=== PATIENT | male | born 1995 | race African-American/Black ===

== ENCOUNTER 2016-11-10 23:49 | Emergency (ER) | payer SELFPAY ==
[~2016-11-10] VITALS: Ht 182.9 cm; Wt 80.8 kg
[2016-11-10 23:53] VITALS: BP 132/84; PULSE 72; RESP 16; TEMP 98.5; O2SAT 72; O2SAT 99
[2016-11-11] MEDS ORDERED: LIDOCAINE 1%/EPINEPHrine 1:100,000 SOLN 30 ML VIAL INFIL ONE (01:00)
[2016-11-11] MEDS ORDERED: LIDOCAINE 1%/EPINEPHrine 1:100,000 SOLN 20 ML VIAL INFIL ONE (01:00)
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
[2016-11-11 01:22] VITALS: BP 136/78; PULSE 72; RESP 16; O2SAT 99
== END 2016-11-11 01:22 | disposition home or self-care (01) ==
LOC: PHED 23:49 → PHEFT 11-11 01:22
DX: S01.112A Laceration without foreign body of left eyelid and periocular area, initial encounter (principal); X58.XXXA Exposure to other specified factors, initial encounter; Y93.67 Activity, basketball; Y99.9 Unspecified external cause status
CPT/HCPCS: 12011

== ENCOUNTER 2016-11-17 23:25 | Emergency (ER) | payer SELFPAY ==
[~2016-11-17] VITALS: Ht 182.9 cm; Wt 82.0 kg
[2016-11-17 23:45] VITALS: BP 137/89; PULSE 64; RESP 18; TEMP 97.8; O2SAT 100
--- NOTE | 2016-11-18 01:22 | PD ---
HPI Chief Complaint: Wound/Suture/Staple Re-Check Time Seen by Provider: 01:19 Travel History International Travel<30 days: No Contact w/Intl Traveler<30days: No Traveled to known affect area: No History of Present Illness HPI The patient is here for suture removal left eyebrow. The sutures are doing well. History Past Medical History Tetanus Vaccination: < 5 Years Influenza Vaccination: Yes Social History Alcohol Use: Yes (RARE) Tobacco Use: No Allergies-Medications (Allergen,Severity, Reaction): Coded Allergies: No Known Allergies (Verified , 11/18/16) Reported Meds & Prescriptions Reported Meds & Active Scripts Active No Active Prescriptions or Reported Medications Review of Systems Except as stated in HPI: all other systems reviewed are Neg Physical Exam Narrative Left eyebrow sutures are healing well and these will be removed. Data Data Last Documented VS Vital Signs Date Time Temp Pulse Resp B/P Pulse Ox O2 Delivery O2 Flow Rate FiO2 11/18/16 01:11 18 11/17/16 23:45 97.8 64 137/89 100 MDM Medical Decision Making Medical Screen Exam Complete: Yes Emergency Medical Condition: Yes Medical Record Reviewed: Yes Differential Diagnosis Laceration adequately healed and suture removal possible, unable to remove sutures because laceration not adequately healed Narrative Course The patient has an adequately healed laceration that we can remove sutures now. Diagnosis Primary Impression: Laceration of left eyebrow Additional Impression: Visit for suture removal Additional Instructions: Return to the emergency department if you have any problems. Scripts No Active Prescriptions or Reported Meds Disposition: 01 DISCHARGE HOME Condition: Stable Washington Curtis MD Nov 18, 2016 01:22
== END 2016-11-18 01:28 | disposition home or self-care (01) ==
LOC: PHED 23:25 → PHEFT 11-18 01:28
DX: Z48.02 Encounter for removal of sutures (principal)
CPT/HCPCS: 99281

== ENCOUNTER 2017-08-31 14:22 | Emergency (ER) | payer OTHER ==
[~2017-08-31] VITALS: Ht 185.4 cm; Wt 79.0 kg
[2017-08-31 14:24] VITALS: BP 139/84; PULSE 70; RESP 16; TEMP 98.8; O2SAT 100
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
== END 2017-08-31 15:35 | disposition home or self-care (01) ==
LOC: NETRI 14:22
DX: R51 Headache (principal); R10.9 Unspecified abdominal pain; V43.52XA Car driver injured in collision with other type car in traffic accident, initial encounter
CPT/HCPCS: 99282